=== PATIENT | female | born 1990 | race Caucasian/White ===

== ENCOUNTER 2018-02-07 10:44 | Emergency (ER) | payer BC ==
[2018-02-07] MEDS ORDERED: Sodium Chloride 0.9% 1,000 ML IV ONE (11:26)
[2018-02-07] MEDS ORDERED: Dicyclomine 20 MG/2 ML SDV IM ONE (11:30)
[2018-02-07] MEDS ORDERED: Sodium Chloride 0.9% 10 ML Syringe FLUSH PRN ×2 (11:30→12:55)
[2018-02-07] MEDS ORDERED: Ondansetron 4 MG/2 ML SDV IVPUSH ONE (11:30)
--- NOTE | 2018-02-07 11:38 | EDM.PDOC ---
ED HPI GENERAL MEDICAL PROBLEM - General Chief Complaint: Abdominal Pain Stated Complaint: ABDOMINAL PAIN AND BLOODY DIARRHEA Time Seen by Provider: 02/07/18 11:03 Source of Information: Reports: Patient History Limitations: Reports: No Limitations - History of Present Illness INITIAL COMMENTS - FREE TEXT/NARRATIVE: 27-year-old female presents for evaluation treatment of abdominal cramps and bloody stools. Patient reports her problems initially began 2 months ago. Began in the epigastric area. She has been seen her primary care provider, Dr. Eason , she was diagnosed with pancreatitis. She states she's had multiple lab studies done as well as a CT, MRI, ultrasound and HIDA scan. Patient was referred to Dr. Poe, surgeon in [place]. She states that she had more blood work done an MRI which showed decreasing inflammation on her pancreas. Patient reports about 10 days ago her symptoms seem to change and she is now experiencing cramping pain in the lower abdomen. She states that goes from a dull cramp to a severe cramp intermittently. Rates the pain as a 4-6 out of 10. States on Wednesday she started having bloody stools. At first she was having a few but states she she is now going to the bathroom "constantly ". She was seen at the [place] [facility]. Reports the stool studies were done. As of this point she is not have any additional diagnoses per she states that she tried Imodium without any relief. She reports associated symptoms of chills and nausea. She states that she is becoming diaphoretic after taking ibuprofen which is new for her. No fevers, vomiting, dysuria, rectal pain, lightheadedness or dizziness. She states that she does not have much of an appetite and has lost between 5-10 pounds over the last 2 months. Last menstrual period started on Wednesday. Patient denies any family history of anyt somewhere. Patient denies any previous surgeries to her abdomen. Patient denies any recent travel. Patient denies any recent antibiotic usage. Lower Abdominal Pain Score (Numeric/FACES): 4 - Related Data Allergies Allergy/AdvReac Type Severity Reaction Status Date / Time No Known Allergies Allergy Verified 02/07/18 10:57 Home Meds: Home Meds Acetaminophen/oxyCODONE [Percocet 325-5 MG] 1 tab PO Q6HR PRN #20 tab 02/07/18 [ Rx] Ciprofloxacin [Cipro XR] 500 mg PO DAILY #20 tab.er 02/07/18 [Rx] metroNIDAZOLE [Flagyl] 500 mg PO Q8H #30 tab 02/07/18 [Rx] Past Medical History - Past Health History Medical/Surgical History: Denies Medical/Surgical History Social & Family History - Tobacco Use Smoking Status *Q: Never Smoker Second Hand Smoke Exposure: No - Caffeine Use Caffeine Use: Reports: Coffee - Recreational Drug Use Recreational Drug Use: No ED ROS GENERAL - Review of Systems Review Of Systems: See Below Constitutional: Reports: Chills, Diaphoresis (post ibuprofen ingestion), Decreased Appetite, Weight Loss (5-10 lbs over the last 2 months). Denies: Fever Cardiovascular: Denies: Lightheadedness GI/Abdominal: Reports: Abdominal Pain (lower abdominal cramping), Bloody Stool, Diarrhea, Nausea. Denies: Melena, Vomiting : Reports: No Symptoms, Other (LMP started Wednesday). Denies: Dysuria Neurological: Denies: Dizziness ED EXAM, GI/ABD - Physical Exam Exam: See Below Exam Limited By: No Limitations General Appearance: Alert, WD/WN, No Apparent Distress Eyes: Right: Proptosis Ears: Normal External Exam Nose: Normal Inspection Throat/Mouth: Normal Inspection, Normal Lips, Normal Voice, No Airway Compromise , Other (pallor to the lips) Respiratory/Chest: No Respiratory Distress, Lungs Clear, Normal Breath Sounds Cardiovascular: Normal Peripheral Pulses, Regular Rate, Rhythm, No Murmur GI/Abdominal Exam: Guarding, Tender (lower abdomen greatest suprappubic), Other (hyperactive bowel sounds). No: Rigid, Rebound Neurological: Alert, Oriented, Normal Cognition Psychiatric: Normal Affect, Normal Mood Skin Exam: Warm, Dry, Normal Color Course - Vital Signs Last Recorded V/S: Last Vital Signs Temp 97.7 F 02/07/18 10:54 Pulse 105 H 02/07/18 10:54 Resp 18 02/07/18 10:54 BP 119/82 02/07/18 10:54 Pulse Ox 98 02/07/18 10:54 Orthostatic Blood Pressure [ 100/70 Standing] Orthostatic Blood Pressure [ 106/59 Sitting] Orthostatic Blood Pressure [ 102/58 Supine] - Orders/Labs/Meds Orders: Active Orders 24 hr Category Date Time Status Orthostatic Vital Signs [RC] ASDIRECTED Care 02/07/18 11:27 Active Peripheral IV Care [RC] . DIRECTED Care 02/07/18 11:30 Active UA W/MICROSCOPIC [URIN] Stat Lab 02/07/18 13:50 Ordered Peripheral IV Insertion Adult [OM.PC] Routine Oth 02/07/18 11:30 Ordered Labs: Laboratory Tests 02/07/18 02/07/18 02/07/18 Range/Units 11:50 11:50 11:50 WBC 9.65 (3.98-10.04) K/mm3 RBC 4.91 (3.98-5.22) M/mm3 Hgb 13.6 (11.2-15.7) gm/L Hct 40.3 (34.1-44.9) % MCV 82.1 (79.4-94.8) fl MCH 27.7 (25.6-32.2) pg MCHC 33.7 (32.2-35.5) g/dl RDW Std Deviation 38.2 (36.4-46.3) fL Plt Count 342 (182-369) K/mm3 MPV 9.2 L (9.4-12.3) fl Neutrophils % (Manual) 39 L (40-60) % Band Neutrophils % 18 H (0-10) % Lymphocytes % (Manual) 22 (20-40) % Atypical Lymphs % 0 % Monocytes % (Manual) 15 H (2-10) % Eosinophils % (Manual) 5 (0.7-5.8) % Basophils % (Manual) 1 (0.1-1.2) Platelet Estimate Adequate RBC Morph Comment Normal Sodium 140 (136-145) mEq/L Potassium 4.1 (3.5-5.1) mEq/L Chloride 103 (98-107) mEq/L Carbon Dioxide 25 (21-32) mEq/L Anion Gap 16.1 H (5-15) BUN 10 (7-18) mg/dL Creatinine 1.0 (0.55-1.02) mg/dL Est Cr Clr Drug Dosing 79.11 mL/min Estimated GFR (MDRD) > 60 (>60) mL/min BUN/Creatinine Ratio 10.0 L (14-18) Glucose 110 H (74-106) mg/dL Calcium 8.7 (8.5-10.1) mg/dL Total Bilirubin 0.6 (0.2-1.0) mg/dL AST 19 (15-37) U/L ALT 21 (14-59) U/L Alkaline Phosphatase 75 (46-116) U/L C-Reactive Protein 15.1 H* (<1.0) mg/dL Total Protein 7.5 (6.4-8.2) g/dl Albumin 3.2 L (3.4-5.0) g/dl Globulin 4.3 gm/dL Albumin/Globulin Ratio 0.7 L (1-2) Lipase 327 (73-393) U/L HCG, Qual Negative (NEGATIVE) Urine Color (Yellow) Urine Appearance (Clear) Urine pH (5.0-8.0) Ur Specific Mercer (1.005-1.030) Urine Protein (Negative) Urine Glucose (UA) (Negative) Urine Ketones (Negative) Urine Occult Blood (Negative) Urine Nitrite (Negative) Urine Bilirubin (Negative) Urine Urobilinogen (0.2-1.0) Ur Leukocyte Esterase (Negative) Urine RBC (0-5) /hpf Urine WBC (0-5) /hpf Ur Epithelial Cells (0-5) /hpf Urine Bacteria (FEW) /hpf Urine Mucus (FEW) /hpf Ethyl Alcohol (0.00) gm% 02/07/18 02/07/18 Range/Units 11:50 13:50 WBC (3.98-10.04) K/mm3 RBC (3.98-5.22) M/mm3 Hgb (11.2-15.7) gm/L Hct (34.1-44.9) % MCV (79.4-94.8) fl MCH (25.6-32.2) pg MCHC (32.2-35.5) g/dl RDW Std Deviation (36.4-46.3) fL Plt Count (182-369) K/mm3 MPV (9.4-12.3) fl Neutrophils % (Manual) (40-60) % Band Neutrophils % (0-10) % Lymphocytes % (Manual) (20-40) % Atypical Lymphs % % Monocytes % (Manual) (2-10) % Eosinophils % (Manual) (0.7-5.8) % Basophils % (Manual) (0.1-1.2) Platelet Estimate RBC Morph Comment Sodium (136-145) mEq/L Potassium (3.5-5.1) mEq/L Chloride (98-107) mEq/L Carbon Dioxide (21-32) mEq/L Anion Gap (5-15) BUN (7-18) mg/dL Creatinine (0.55-1.02) mg/dL Est Cr Clr Drug Dosing mL/min Estimated GFR (MDRD) (>60) mL/min BUN/Creatinine Ratio (14-18) Glucose (74-106) mg/dL Calcium (8.5-10.1) mg/dL Total Bilirubin (0.2-1.0) mg/dL AST (15-37) U/L ALT (14-59) U/L Alkaline Phosphatase (46-116) U/L C-Reactive Protein (<1.0) mg/dL Total Protein (6.4-8.2) g/dl Albumin (3.4-5.0) g/dl Globulin gm/dL Albumin/Globulin Ratio (1-2) Lipase (73-393) U/L HCG, Qual (NEGATIVE) Urine Color Yellow (Yellow) Urine Appearance Clear (Clear) Urine pH 6.0 (5.0-8.0) Ur Specific Mercer 1.015 (1.005-1.030) Urine Protein Negative (Negative) Urine Glucose (UA) Negative (Negative) Urine Ketones 1+ H (Negative) Urine Occult Blood Trace-lysed H (Negative) Urine Nitrite Negative (Negative) Urine Bilirubin Negative (Negative) Urine Urobilinogen 0.2 (0.2-1.0) Ur Leukocyte Esterase Negative (Negative) Urine RBC 0-5 (0-5) /hpf Urine WBC 0-5 (0-5) /hpf Ur Epithelial Cells 0-5 (0-5) /hpf Urine Bacteria Occasional (FEW) /hpf Urine Mucus Not seen (FEW) /hpf Ethyl Alcohol 0.00 (0.00) gm% Meds: Medications Discontinued Medications Generic Name Dose Route Start Last Admin Trade Name Freq PRN Reason Stop Dose Admin Diatrizoate Meglum/Diatrizoate Sod 120 ml 02/07/18 12:55 02/07/18 13:06 Gastrografin 37% PO 02/07/18 12:56 90 ml ONETIME ONE Administration Dicyclomine HCl 20 mg 02/07/18 11:30 02/07/18 11:57 Bentyl IM 02/07/18 11:31 20 mg ONETIME ONE Administration Hydromorphone HCl 0.5 mg 02/07/18 14:15 02/07/18 14:22 Dilaudid IVPUSH 02/07/18 14:16 0.5 mg ONETIME ONE Administration Sodium Chloride 1,000 mls @ 999 mls/hr 02/07/18 11:26 02/07/18 11:55 Normal Saline IV 02/07/18 12:26 999 mls/hr ONETIME ONE Administration Iopamidol 100 ml 02/07/18 12:55 02/07/18 13:06 Isovue-300 (61%) IVPUSH 02/07/18 12:56 100 ml ONETIME ONE Administration Ondansetron HCl 4 mg 02/07/18 11:30 02/07/18 11:56 Zofran IVPUSH 02/07/18 11:31 4 mg ONETIME ONE Administration Sodium Chloride 10 ml 02/07/18 11:30 02/07/18 11:55 Saline Flush FLUSH 10 ml ASDIRECTED PRN Administration Keep Vein Open Sodium Chloride 10 ml 02/07/18 12:55 02/07/18 13:06 Saline Flush FLUSH 10 ml ONETIME PRN Administration IV FLUSH - Radiology Interpretation Free Text/Narrative:: CT abdomen and pelvis Technique: Multiple axial sections were obtained from above the dome of the diaphragm inferiorly through the pubic symphysis. Intravenous and oral contrast was utilized. Delayed images were also obtained through the bladder. Findings: Areas of bowel wall thickening are seen throughout the colon. Findings are felt compatible with a nonspecific colitis. Appendix is seen which is normal in size. Visualized lung bases shows nothing acute. Liver shows no focal parenchymal abnormality. Gallbladder contains no calcified gallstones. Spleen appears within normal limits. Adrenal glands show no nodule. Kidneys show symmetric contrast enhancement without hydronephrosis or mass. Pancreas appears within normal limits. Aorta shows no aneurysmal dilatation. No retroperitoneal adenopathy or mesenteric abnormalities are seen. No pelvic mass or adenopathy is seen. Delayed images shows contrast within the distal ureters and within the bladder. No free fluid or inflammatory change is seen. Impression: 1. Scattered areas of bowel wall thickening throughout the colon. Findings are compatible with nonspecific colitis. 2. No additional abnormality is identified on CT study of the abdomen and pelvis. - Re-Assessments/Exams Free Text/Narrative Re-Assessment/Exam: 02/07/18 13:00 Checked on the patient. She states that the cramps have become slightly better with the Bentyl but she is continues to have discomfort. She declined anything stronger for pain at this point and she will let us know if she does require anything more for pain. We were able to obtain records from [facility]. She was initially seen on 12-17-[address] Eason diagnosed with pancreatitis. She was then referred to Dr. Poe in [place] whom she saw on 12-30-17. At that point she had had an ultrasound and a HIDA scan which did not show any gallstones as a source of pancreatitis. She then had a CT scan done on 12-31-17 which showed a subtle swelling and edema suggest around the pancreatic head consistent with pancreatitis. No discrete or loculated fluid collection sections. Gallbladder not well visualized common bile duct mildly prominent up to 7 mm. She then had an MRCP on 01-20-18 which showed resolution of the pancreatitis. She was this evening at the walk-in clinic on 02-07-18. She had labs and stool studies done. CBC showed a normal white blood cell count of 6.4, hemoglobin 13.4 , platelets of 302. Sodium 141, potassium 4.5, chloride 104. Anion gap 15. Creatinine 0.8. Total bilirubin 0.5. AST 17, ALT 29 and alkaline phosphatase 70. UA was unremarkable. Stool studies were negative for Shiga-like toxin, C. difficile and cryptosporidium and GERD. 02/07/18 14:16 Patient reports pain is worsening. 0.5 mg IV Dilaudid 02/07/18 15:03 CT results returned. case discussed with . Recommended starting on Cipro and Flagyl. Close follow-up in the clinic or with GI as planned. Reviewed the CT results with the patient. We will try her on a short course of antibiotics. I did inform her that if this is inflammatory in nature such as Crohn's versus UC she may require steroids in the future patient will likely need a colonoscopy to diagnosis this. She expresses understanding. At this point we'll discharge her home. Discharge instructions as documented. Departure - Departure Time of Disposition: 15:03 Disposition: Home, Self-Care 01 Condition: Fair Clinical Impression: Colitis - Discharge Information Prescriptions: Acetaminophen/oxyCODONE [Percocet 325-5 MG] 1 tab PO Q6HR PRN #20 tab PRN Reason: Pain Ciprofloxacin [Cipro XR] 500 mg PO DAILY #20 tab.er metroNIDAZOLE [Flagyl] 500 mg PO Q8H #30 tab Instructions: Colitis Referrals: Calista Orellana PA-C [Primary Care Provider] - Francoise Anguiano MD [Physician] - Forms: ED Department Discharge Additional Instructions: You were given medication in the ER that can affect your ability to drive and operate machinery. Do not drive or operate machinery within 12 hours of taking prescription narcotic pain medication. Ciprofloxacin twice a day for 10 days. Flagyl 3 times a day for 10 days. Do not drink alcohol with the Flagyl so will make feel very ill. Recommend taking these antibiotics with food. There recommend starting a probiotic. These are available [id number]. Follow-up with GI as planned. See your primary care provider as needed for follow-up. Your results of your stool culture should be available later this week. You can talk contact her for these results. Percocet 1-2 tabs every 6 hours as needed for severe pain. Percocet as habit- forming, take as few of these as needed control your pain. Do not drive or operate machinery within 12 hours taking Percocet. Please return to the ER for symptoms change or worsen. - My Orders Last 24 Hours: My Active Orders 02/07/18 11:27 Orthostatic Vital Signs [RC] ASDIRECTED 02/07/18 11:30 Peripheral IV Care [RC] . DIRECTED Peripheral IV Insertion Adult [OM.PC] Routine 02/07/18 13:50 UA W/MICROSCOPIC [URIN] Stat - Assessment/Plan Last 24 Hours: My Active Orders 02/07/18 11:27 Orthostatic Vital Signs [RC] ASDIRECTED 02/07/18 11:30 Peripheral IV Care [RC] . DIRECTED Peripheral IV Insertion Adult [OM.PC] Routine 02/07/18 13:50 UA W/MICROSCOPIC [URIN] Stat
[2018-02-07] MEDS ORDERED: Diatrizoate Meglumine/Diatrizoate Sodium 37% 120 ML Bottle PO ONE (12:55)
[2018-02-07] MEDS ORDERED: Iopamidol 612 MG/ML 100 ML Bottle IVPUSH ONE (12:55)
[2018-02-07] MEDS ORDERED: HYDROmorphone 0.5 MG/0.5 ML SYRINGE IVPUSH ONE (14:15)
--- NOTE | 2018-02-07 14:51 | CT ---
CT abdomen and pelvis Technique: Multiple axial sections were obtained from above the dome of the diaphragm inferiorly through the pubic symphysis. Intravenous and oral contrast was utilized. Delayed images were also obtained through the bladder. Findings: Areas of bowel wall thickening are seen throughout the colon. Findings are felt compatible with a nonspecific colitis. Appendix is seen which is normal in size. Visualized lung bases shows nothing acute. Liver shows no focal parenchymal abnormality. Gallbladder contains no calcified gallstones. Spleen appears within normal limits. Adrenal glands show no nodule. Kidneys show symmetric contrast enhancement without hydronephrosis or mass. Pancreas appears within normal limits. Aorta shows no aneurysmal dilatation. No retroperitoneal adenopathy or mesenteric abnormalities are seen. No pelvic mass or adenopathy is seen. Delayed images shows contrast within the distal ureters and within the bladder. No free fluid or inflammatory change is seen. Impression: 1. Scattered areas of bowel wall thickening throughout the colon. Findings are compatible with nonspecific colitis. 2. No additional abnormality is identified on CT study of the abdomen and pelvis. Diagnostic code #3
== END 2018-02-07 15:23 | disposition home or self-care (01) ==
LOC: JD.ED 10:44
DX: K52.9 Noninfective gastroenteritis and colitis, unspecified (principal); Z79.899 Other long term (current) drug therapy
CPT/HCPCS: 36415; 74177; 80053; 81001; 83690; 84703; 85007; 85027; 86140; 87046; 89055; 96361; 96372; 96374; 96375; 99284; G0480; J0500; J1170; J2405; J7040; J7050; Q9963; Q9967; 87427